=== PATIENT | female | born 1945 | race Caucasian/White ===

== ENCOUNTER 2024-02-13 13:39 | Emergency (ER) | payer MEDICARE, SELFPAY ==
[2024-02-13 13:45] VITALS: BP 128/68; PULSE 69; RESP 16; TEMP 36.7; O2SAT 95; BMI 24.9
--- NOTE | 2024-02-13 14:29 | XR_ITS ---
Examination: Ultrasound soft tissue right leg Technique multiple high-resolution grayscale sonographic images soft tissue right lower leg Exam date and time: February 13, 2024 1528 hrs. Indications: Palpable lump right leg beginning 4 hours ago Findings: Complex echogenic mass at the area concern 4.2 x 1.5 x 4.1 cm suspicious for developing abscess, hematoma not excluded Impression: Complex echogenic mass at the area concern 4.2 x 1.5 x 4.1 cm suspicious for developing abscess, hematoma Excluded, clinical correlation advised
--- NOTE | 2024-02-13 14:29 | PD.EDSKIN ---
ED Skin Abcess FB-RME/HPI General Chief complaint: Skin/Abscess/Foreign Body Stated complaint: ITCHY BUMP TO RIGHT ANKLE Time Seen by Provider: 02/13/24 13:45 Arrival date/time: 02/13/24 13:39 This is an 78-year-old female that comes in with complaints of bump to the right dorsal lower leg. Patient states it started prior to arrival. Patient denies trauma. Patient complains of mild pain. Patient has a history of high blood pressure, thyroid disease. I have greeted and performed a focused initial assessment of this patient. Initial appropriate labs ordered at this time. A comprehensive ED assessment and evaluation of the patient and analysis of all test and completion of medical decision making process will be conducted by additional ED provider. Related Data Home Medications ?Medication ?Instructions ?Recorded ?Confirmed benazepril 40 mg tablet 40 mg PO QDAY 01/24/20 03/12/20 bumetanide 1 mg tablet 1 mg PO QDAY 01/24/20 03/12/20 levothyroxine 75 mcg tablet 75 mcg PO QDAY 01/24/20 03/12/20 (Synthroid) nifedipine 60 mg tablet,extended 90 mg PO QDAY 01/24/20 03/12/20 release 24 hr amlodipine 5 mg tablet 5 mg PO QDAY 03/12/20 03/12/20 eszopiclone 3 mg tablet (Lunesta) 3 mg PO QDAY 03/12/20 03/12/20 Allergies Allergy/AdvReac Type Severity Reaction Status Date / Time Penicillins Allergy Severe HANDS Verified 05/24/21 08:51 SWELLING Review of Systems Review of Systems Systems Reviewed: All systems reviewed, normal except as documented Past Medical History Past Medical History NEUROLOGIC: Negative Neurological Disorders, Cerebrovascular Accident, Alzheimer's Disease or Seizures CARDIAC: Positive Congestive Heart Failure and Hypertension; Negative Cardiac Disorders, Myocardial Infarction or Angina RESPIRATORY: Negative Chronic Obstructive Pulmonary Disease (COPD), Emphysema or Cystic Fibrosis GASTROINTESTINAL: Negative Gastrointestinal Disorders, Liver Cancer or Pancreatic Cancer GENITOURINARY: Positive Dialysis (X3 WEEK/ MON. WED. THURSDAY); Negative Renal Disease REPRODUCTIVE: Positive Previous Pregnancies (X2) MUSCULOSKELETAL: Negative Musculoskeletal Disorders, Muscular Dystrophy or Bone Cancer ENT: Positive Cataracts; Negative Blind or Deafness ENDOCRINE: Positive Diabetes Mellitus Type 2; Negative Endocrine Disorders or Diabetes Mellitus Type 1 OTHER HISTORY: Positive Blood Transfusions; Negative Down Syndrome, Developmental Delay, Falls, Blood Transfusion Reaction or Anesthesia Reactions Family History FAMILY HISTORY: Negative Family Cardiac Disorders Surgical History SURGICAL: Positive Angiogram Social History SMOKING STATUS: Never smoker Travel History EBOLA RISK: No ED Exam General General appearance: Present alert and in no apparent distress Head Head exam: Present atraumatic Eye Eye exam: Present normal appearance, PERRL and EOMI ENT ENT exam: Present normal exam, normal oropharynx and mucous membranes moist Neck Neck exam: Present normal inspection, full ROM and trachea midline Chest Chest inspection: Present normal inspection and symmetric chest wall rise Respiratory Respiratory exam: Present normal lung sounds bilaterally Cardiovascular Cardiovascular exam: Present regular rate, normal rhythm and normal heart sounds Abdominal Exam Abdominal exam: Present soft and normal bowel sounds Extremities Exam Extremities exam: Present full ROM and other (approx 3.5cm 3.5 cm bump on right dorsal lower leg) Back Exam Back exam: Present normal inspection and full ROM Neurological Exam Neurological exam: Present alert, oriented X3 and CN II-XII intact Psychiatric Psychiatric exam: Present normal affect and normal mood Skin Skin exam: Present warm, dry, intact and normal color Course Quality Measures none Orders Category Date Time Status US soft tissue lower back abd Stat Exams 02/13/24 14:29 Completed Vital Signs Vital signs: Vital Signs Temperature 98.0 F 02/13/24 13:45 Pulse Rate 69 02/13/24 13:45 Respiratory Rate 16 02/13/24 13:45 Blood Pressure 128/68 02/13/24 13:45 Pulse Oximetry (%) 95 02/13/24 13:45 Oxygen Delivery Method Room Air 02/13/24 13:45 Skin / Abscess / Foreign Body MDM Narrative MDM Narrative:: This is an 78-year-old female that comes in with complaints of bump to the right dorsal lower leg. Patient states it started prior to arrival. Patient denies trauma. Patient complains of mild pain. Patient has a history of high blood pressure, thyroid disease. US to right lower leg Findings: Complex echogenic mass at the area concern 4.2 x 1.5 x 4.1 cm suspicious for developing abscess, hematoma not excluded Impression: Complex echogenic mass at the area concern 4.2 x 1.5 x 4.1 cm suspicious for developing abscess, hematoma Excluded, clinical correlation advised It is likely this is not an abscess, no erythema. It is possible pt hit her right lower leg. This is likely a hematoma not abscess. I told pt to elevate and ICE area. Take tylenol for pain. Pt told to fpllow up with primary provider in 1-2 days. Come back to ED if symptoms change or worsen. Patient data External records reviewed:: [facility] previous records Clinical information provided by:: patient Social determinants that could affect healthcare access:: none Patient has the following chronic illnesses:: see note How is presenting disease/condition affected by chronic disease/condition?: uneffected by Evaluation data The following diagnostics were reviewed and interpreted by me:: radiology exam(s) Lab and/or radiology exams considered but not ordered:: none Interpretation Summary: see note Medications / Prescriptions Medications or Prescriptions considered but not ordered:: none Medication administrations:: see note Consultations Consultation(s) initiated? (list below): No Diagnosis Skin/Abscess Differential Diagnosis: abscess of skin or subcutaneous tissue, viral exanthem, allergic reaction to drug, cellulitis and other (hematoma ) Most likely diagnosis given after review of the tests above:: hematoma Admission Indicated Admission indicated?: not indicated Admission Request Was there a request for admission?: No Disposition Plan Disposition Plan: Discharge Discharge Attestation Discharge Attestation: The patient and all family members were given an opportunity to ask questions and understood the discharge instructions. Discharge instructions specifically effects, indications for sooner follow up or return to the emergency department, and the expected course of current diagnosis. Patient condition: Stable Discharge Plan Plan Patient Disposition: HOME (Self Care) Patient condition on transfer: Stable Prescriptions/Referrals Prescriptions/Med Rec: No Action bumetanide 1 mg Tablet 1 mg PO QDAY levothyroxine [Synthroid] 75 mcg Tablet 75 mcg PO QDAY nifedipine 60 mg Tablet Extended Release 24hr 90 mg PO QDAY benazepril 40 mg Tablet 40 mg PO QDAY amlodipine 5 mg Tablet 5 mg PO QDAY eszopiclone [Lunesta] 3 mg Tablet 3 mg PO QDAY Referrals: Jocelynn Clark MD [Primary Care Provider] - In 1 week Problem List Clinical Impression: Hematoma of leg, Contusion Patient/Caregiver Discharge Instructions Discharge Activity: activity as tolerated Education Materials: Bone Contusion Additional Instructions: May use ice to decrease swelling. Take Tylenol and ibuprofen for pain. Come back to the emergency room symptoms change or worsen Print Language: Citizen Of [place] Stand Alone Forms: Debo Award Info., Patient Portal Info Letter PA/SOLAR SALES ESTIMATOR Supervising Physician PA/SOLAR SALES ESTIMATOR Supervising Physician: [email or web address]
[2024-02-13 15:42] VITALS: BP 139/62; PULSE 77; RESP 16; TEMP 36.8; O2SAT 95
== END 2024-02-13 17:35 | disposition home or self-care (01) ==
PROVIDERS: Emergency Provider Neurological Surgery; PCP Internal Medicine
DX: S80.11XA Contusion of right lower leg, initial encounter (principal); E07.9 Disorder of thyroid, unspecified
CPT/HCPCS: 76705; 99284

== ENCOUNTER → 2024-11-23 | Outpatient (CLI) | payer MEDICARE, SELFPAY ==
--- NOTE | 2024-11-23 09:26 | XR_ITS ---
Examination: PA lateral chest 2 views TECHNIQUE: Upright PA lateral chest 2 views Date and time: November 23, 2024 0932 hours, comparison May 24, 2021 INDICATIONS: Coughing one month. FINDINGS: Moderate hyperexpansion. Minimal prominence left ventricle. Accentuation bronchovascular markings. Prominent central pulmonary arteries. No lobar pneumonia or pulmonary edema Prominent osteopenia IMPRESSION: COPD Bronchitis pattern
== END | disposition home or self-care (01) ==
LOC: CDIM 09:09
PROVIDERS: PCP Internal Medicine; Referring Provider Internal Medicine; Visit Provider Internal Medicine
DX: J44.9 Chronic obstructive pulmonary disease, unspecified (principal)
CPT/HCPCS: 71046

== ENCOUNTER 2025-02-08 05:33 | Emergency (ER) | payer MEDICARE, SELFPAY ==
--- NOTE | 2025-02-08 | XR_ITS ---
Examination: Steroid injection right hip joint with imaging guidance Fluoroscopy AP right hip single view INDICATIONS: Severe right hip joint pain 1 week. Exam date and time: February 08, 2025, 1212 hours Informed consent provided. Technique: A timeout was completed verifying correct patient, procedure, site, positioning. The patient was placed in supine position appropriate for the steroid injection The patient's site was prepped and draped in sterile fashion 5 cc 1% lidocaine administered locally for anesthesia. Sterile drape applied, maximum barrier sterile technique. Utilizing fluoroscopic guidance, 23-gauge needle placed in the right hip joint 1 cc Depo-Medrol introduced into the right hip joint The patient was in satisfactory and stable condition on completion of the procedure Attending radiologist was present for the entire procedure Estimated blood loss 0 cc. Impression: Successful steroid injection right hip joint with imaging guidance Fluoroscopy 0.1-minute radiation dose 0.80 mGy 1 spot fluoroscopic hip film.
[2025-02-08 05:36] VITALS: BP 123/66; PULSE 82; RESP 18; TEMP 36.9; O2SAT 95; BMI 26.6
--- NOTE | 2025-02-08 05:51 | XR_ITS ---
Examination: Right hip AP, lateral, AP pelvis 3 views Technique: Hip AP lateral, AP pelvis, 3 views Exam date and time: February 08, 2025, 0557 hours INDICATION: Right hip pain beginning 6 weeks ago. FINDINGS: Significant osteopenia No acute fracture Mild to moderate narrowing hip joints bilaterally Bones of the pelvis intact IMPRESSION: No acute hip or pelvic fracture Mild to moderate narrowing hip joints bilaterally Repeat the right hip films short-term as clinically warranted.
--- NOTE | 2025-02-08 05:51 | PD.EDRME ---
Rapid Medical Screening Exam E Arrival date/time: 02/08/25 05:33 79F with history of ESRD, HTN, and hypothyroidism presents to ED with 1 month of worsening R hip pain w/o fall/trauma. Patient has not had surgery there before. Pain that does not radiate anywhere. Chief Complaint: Hip Injury/Pain Vital signs: Vital Signs Temperature 98.4 F 02/08/25 05:36 Pulse Rate 82 02/08/25 05:36 Respiratory Rate 18 02/08/25 05:36 Blood Pressure 123/66 02/08/25 05:36 Pulse Oximetry (%) 95 02/08/25 05:36 Oxygen Delivery Method Room Air 02/08/25 05:36 Exam: Walking with walker. Clinical Impression: Hip pain vs septic arthritis vs DVT vs hip fx
[2025-02-08] MEDS: HYDROcodone/APAP 7.5/325 TABLET 1 TAB PO (06:11)
--- NOTE | 2025-02-08 13:26 | EDNOTE_ITS ---
<Statement entered by Negin Daniels MD - 02/18/25 06:29> As co-signing physician, I was present and available for consult prn. I concur with the plan and care as documented by the midlevel provider. Lower Extremity Injury RME/HPI General Chief Complaint: Hip Injury/Pain Stated Complaint: R HIP PAIN Time Seen by Provider: 02/08/25 08:42 Arrival date/time: 02/08/25 05:33 79-year-old female with hypertension on dialysis presents to the emergency department today for complaints of hip pain for more than 1 month Limitations: no limitations RME / HPI RME / HPI Narrative: 02/08/25 05:33 79F with history of ESRD, HTN, and hypothyroidism presents to ED with 1 month of worsening R hip pain w/o fall/trauma. Patient has not had surgery there before. Pain that does not radiate anywhere. Exam: Walking with walker. Impression: Hip pain vs septic arthritis vs DVT vs hip fx Related Data Home Medications ?Medication ?Instructions ?Recorded ?Confirmed benazepril 40 mg tablet 40 mg PO QDAY 01/24/2003/12 bumetanide 1 mg tablet 1 mg PO QDAY 01/24/20 levothyroxine 75 mcg tablet 75 mcg PO QDAY 01/24/20 (Synthroid) nifedipine 60 mg tablet,extended 90 mg PO QDAY 0 03/12/20 release 24 hr amlodipine 5 mg tablet 5 mg PO QDAY 03/12/20 eszopiclone 3 mg tablet (Lunesta) 3 mg PO QDAY 1 03/12/20 Previous Rx's ?Medication ?Instructions ?Recorded cephalexin 500 mg capsule 500 mg PO BID 7 days #14 cap s 02/08/25 hydrocodone 5 mg-acetaminophen 325 1 tab PO BID PRN pa in #10 tabs 02/08/25 mg tablet mupirocin 2 % topical ointment 1 applic topical TID 10 days #22 02/08/25 grams Allergies Allergy/AdvReac Type Severity Reaction Status Date / Time Penicillins Allergy Severe HANDS Verified 02/08/25 05:40 SWELLING Review of Systems Review of Systems Systems Reviewed: All systems reviewed, normal except as documented Constitutional Constitutional: Reports system reviewed and no additional complaints, except as documented, Denies fever(s) and Denies headache(s) Eyes Eyes: Reports system reviewed and no additional complaints, except as documented and Denies blurry vision ENT Ears, Nose, Mouth, and Throat: Reports system reviewed and no additional complaints, except as documented, Denies headache(s), Denies nasal congestion and Denies nasal discharge Cardiovascular Cardiovascular: Reports system reviewed and no additional complaints, except as documented, Denies chest pain and Denies dyspnea Respiratory Respiratory: Reports system reviewed and no additional complaints, except as documented, Denies chest congestion, Denies cough and Denies dyspnea Gastrointestinal Gastrointestinal: Reports system reviewed and no additional complaints, except as documented and Denies abdominal pain Musculoskeletal Musculoskeletal: Reports system reviewed and no additional complaints, except as documented, Reports abnormal gait, Reports arthralgias, Denies deformity, Denies numbness, Reports stiffness, Denies tingling and Reports other (1 month history of right hip pain) Integumentary/Breasts Skin/Breast: Reports system reviewed and no additional complaints, except as documented, Denies rash and Reports other (Superficial skin sore right buttock) Neurologic Neurologic: Reports system reviewed and no additional complaints, except as documented, Reports as per HPI, Reports abnormal gait, Denies headache(s), Denies numbness and Denies tingling Past Medical History Past Medical History NEUROLOGIC: Negative Neurological Disorders, Cerebrovascular Accident, Alzheimer's Disease or Seizures CARDIAC: Positive Congestive Heart Failure and Hypertension; Negative Cardiac Disorders, Myocardial Infarction or Angina RESPIRATORY: Negative Chronic Obstructive Pulmonary Disease (COPD), Emphysema or Cystic Fibrosis GASTROINTESTINAL: Negative Gastrointestinal Disorders, Liver Cancer or Pancreatic Cancer GENITOURINARY: Positive Dialysis (X3 WEEK/ THU. THU. THURSDAY); Negative Renal Disease REPRODUCTIVE: Positive Previous Pregnancies (X2) MUSCULOSKELETAL: Negative Musculoskeletal Disorders, Muscular Dystrophy or Bone Cancer ENT: Positive Cataracts; Negative Blind or Deafness ENDOCRINE: Positive Diabetes Mellitus Type 2; Negative Endocrine Disorders or Diabetes Mellitus Type 1 OTHER HISTORY: Positive Blood Transfusions; Negative Down Syndrome, Developmental Delay, Falls, Blood Transfusion Reaction or Anesthesia Reactions Family History FAMILY HISTORY: Negative Family Cardiac Disorders Surgical History SURGICAL: Positive Angiogram Social History SMOKING STATUS: Never smoker ED Exam General Limitations: Present no limitations General appearance: Present alert and in no apparent distress Head Head exam: Present atraumatic Eye Eye exam: Present normal appearance, PERRL and EOMI ENT ENT exam: Present normal exam, normal oropharynx and mucous membranes moist Neck Neck exam: Present normal inspection, full ROM and trachea midline Chest Chest inspection: Present normal inspection and symmetric chest wall rise Respiratory Respiratory exam: Present normal lung sounds bilaterally Cardiovascular Cardiovascular exam: Present regular rate, normal rhythm and normal heart sounds Abdominal Exam Abdominal exam: Present soft and normal bowel sounds Extremities Exam Extremities exam: Present full ROM, tenderness (Right hip tenderness) and normal capillary refill; Absent pedal edema, joint swelling or calf tenderness Back Exam Back exam: Present normal inspection and full ROM Neurological Exam Neurological exam: Present alert, oriented X3 and CN II-XII intact Psychiatric Psychiatric exam: Present normal affect and normal mood Skin Skin exam: Present warm and dry Expanded Skin Exam Body image: 2 1. Superficial skin sore right buttock Course Quality Measures none Orders Category Date Time Status Diet Renal Diet 02/08/[address] hip RT wo con Stat Exams 02/08/25 13:32 Completed IR hip injection Stat Exams 02/08/25 Completed XR hip RT w pelvis 2-3V Stat Exams 02/08/25 05:51 Completed Bupivacaine Mpf 0.25% [Sensorcaine-Mpf Inj 0.25%] Med 02/08/25 12:28 Discontinued 30 ml .ROUTE .STK-MED ONE HYDROcodone*/APAP 7.5/325 [[place] 7.5/325] Med 02/08/25 05:51 Discontinued 1 tab PO X1 ONE MethylPREDNISolone ACETATE [Depo-Medrol Inj] Med 02/08/25 12:28 Discontinued 80 mg .ROUTE .STK-MED ONE MethylPREDNISolone ACETATE [Depo-Medrol Inj] Med 02/08/25 12:35 Discontinued 80 mg IM X1 ONE Vital Signs Vital signs: Vital Signs Temperature 98.4 F 02/08/25 05:36 Pulse Rate 82 02/08/25 05:36 Respiratory Rate 18 02/08/25 05:36 Blood Pressure 123/66 02/08/25 05:36 Pulse Oximetry (%) 95 02/08/25 05:36 Oxygen Delivery Method Room Air 02/08/25 05:36 O2 saturation 95% room air within normal limits Extremity Injury, Lower MDM Narrative MDM Narrative:: 79-year-old female with medical history significant hypertension on dialysis presents to the emergency department today for complaints of hip pain for more than 1 month On exam patient has tenderness of the right hip patient report pain worse with movement X-ray of the right hip obtained no acute fracture dislocation noted Patient reports he is awaiting a appointment to have a hip injection Consultation: I spoke with Dr. Jones interventional radiologist he states he can do a hip injection here at the ER Hip injection placed Consultation: I spoke with patient's primary care doctor/director phone requested a CT scan to rule out avascular necrosis Hip CT obtained which shows femoral neck fracture I spoke with the patient about the injury patient reports approximately 6 weeks ago she was knocked down by her dog and believes it was the cause. I explained to the patient at this time she has a fracture of her right hip and explained that she needs to have surgery and transfer to a hospital has orthopedics on-call. Patient reports that she absolutely will not be transferred and will go home at this time patient is ambulatory Patient reports she cannot stay needs to take care of her animals and states she will not stay. Patient is GCS of 15 states understanding and states that if she leaves she understands that the fracture can get worse nonetheless patient reports she is still leaving. Consultation: I spoke with patient's primary care doctor states she will reach out to her Patient data External records reviewed:: [facility] previous records Clinical information provided by:: patient Social determinants that could affect healthcare access:: none Patient has the following chronic illnesses:: See history How is presenting disease/condition affected by chronic disease/condition?: u neffected by Evaluation data The following diagnostics were reviewed and interpreted by me:: radiology exam(s) Lab and/or radiology exams considered but not ordered:: Radiology obtained Interpretation Summary: Reviewed by me Medications / Prescriptions Medications or Prescriptions considered but not ordered:: Given Medication administrations:: Medication Administration History Discontinued Medications Hydrocodone Bitart/Acetaminophen (Hydrocodone/Apap 7.5/325 Tablet) 1 tab PO X1 ONE Stop: 02/08/25 05:52 Last Admin: 02/08/25 06:11 Dose: 1 tab Documented By: CVL Bupivacaine HCl (Bupivacaine Mpf 0.25% 30 Ml Vial) Confirm Administered Dose 30 ml .ROUTE .STK-MED ONE Stop: 02/08/25 12:29 Methylprednisolone Acetate (Methylprednisolone Acet Im 80 Mg/Ml Vial) Confirm Administered Dose 80 mg .ROUTE .STK-MED ONE Stop: 02/08/25 12:29 Methylprednisolone Acetate (Methylprednisolone Acet Im 80 Mg/Ml Vial) 80 mg IM X1 ONE Stop: 02/08/25 12:36 Given Consultations Consultation(s) initiated? (list below): No Diagnosis Most likely diagnosis given after review of the tests above:: Hip fracture, right buttock skin sore Admission Indicated Admission indicated?: not indicated Admission Request Was there a request for admission?: No Disposition Plan Disposition Plan: other (specify) (Left AGAINST MEDICAL ADVICE) Discharge Plan Plan Patient Disposition: Left Against Medical Advice Discharge Disposition comment: Stable Prescriptions/Referrals Prescriptions/Med Rec: New hydrocodone-acetaminophen 5-325 mg tablet 1 tab PO BID MDD 10 PRN (Reason: pain) Qty: 10 0RF cephalexin 500 mg capsule 500 mg PO BID 7 Days Qty: 14 0RF mupirocin 2 % ointment 1 applic topical TID 10 Days Qty: 22 0RF No Action bumetanide 1 mg Tablet 1 mg PO QDAY levothyroxine [Synthroid] 75 mcg Tablet 75 mcg PO QDAY nifedipine 60 mg Tablet Extended Release 24hr 90 mg PO QDAY benazepril 40 mg Tablet 40 mg PO QDAY amlodipine 5 mg Tablet 5 mg PO QDAY eszopiclone [Lunesta] 3 mg Tablet 3 mg PO QDAY Referrals: Jocelynn Clark MD [Primary Care Provider, Nephrology] - 02/09/25 Problem List Clinical Impression: Closed fracture of right hip Patient/Caregiver Discharge Instructions Education Materials: How [employer] Print Language: Slovenian PA/ANOOP Supervising Physician OG/ANOOP Supervising Physician: DR daniels
--- NOTE | 2025-02-08 13:32 | XR_ITS ---
Examination: CT right hip, without contrast. CT pelvis without intravenous contrast 2-D sagittal reconstructions. 2-D coronal reconstructions. 3-D reconstructions. Date and time of exam: February 08, 2025, 1520 hours INDICATION: Right hip pain 6 months worse today CTDI: vol (mGy): 6.90 DLP: (mGycm): 216 Technique: Multiple 1.25 mm axial sections of the pelvis right hip have been obtained. 2-D sagittal and coronal reconstructions have been obtained. 3-D reconstructions have been obtained. Low dose protocols were performed. One or more of the following dose reduction techniques were used; automated exposure control, adjustment of the mA and/or KV according to patient size, use of iterative reconstruction technique. Findings: Nonobstructive bowel gas pattern Atrophic uterus No pelvic mass Contracted urinary bladder Severe osteopenia Moderate narrowing hip joints Acute appearing right femoral neck fracture, axial image 111, coronal image 99 No avascular necrosis No hip dislocation Bones of the pelvis intact as well as left hip IMPRESSION: Acute nondisplaced right femoral neck fracture
[2025-02-08 16:16] VITALS: BP 128/82; PULSE 78; RESP 16; TEMP 36.6; O2SAT 99
== END 2025-02-08 16:18 | disposition left against medical advice (07) ==
PROVIDERS: Emergency Provider Emergency Medicine; PCP Internal Medicine
DX: S72.001A Fracture of unspecified part of neck of right femur, initial encounter for closed fracture (principal); X58.XXXA Exposure to other specified factors, initial encounter; Z53.29 Procedure and treatment not carried out because of patient's decision for other reasons
CPT/HCPCS: 20610; 73502; 73700; 77002; 99283; A9270

== ENCOUNTER 2025-02-22 09:28 | Emergency (ER) | payer MEDICARE, SELFPAY ==
--- NOTE | 2025-02-22 09:38 | EKG_ITS ---
[facility] Test Date: 2025-02-22 Pat Name: RYAN PUENTE Department: Room: - Gender: Female Raspberry Checker: : 1945 Requested By: Mino Contreras (EFE) Order Number: [id number] Reading MD: Mino Contreras ([employer]ARD WORKER) Measurements Intervals [place] Rate: 114 P: IN: QRS: -48 QRSD: 104 T: 67 QT: 333 QTc: 459 Interpretive Statements ATRIAL FIBRILLATION WITH RAPID VENTRICULAR RESPONSE LEFT AXIS DEVIATION [QRS AXIS < -30] ANTEROSEPTAL MYOCARDIAL INFARCTION , OF INDETERMINATE AGE [40+ ms Q WAVE IN V1-V4] Compared to ECG 05/24/2021 09:38:30 Left-axis deviation now present Sinus rhythm no longer present First degree AV block no longer present Myocardial infarct finding still present /store/S0/[id number].pdf
[2025-02-22 09:49] VITALS: BP 92/55; PULSE 117; RESP 18; TEMP 36.9; O2SAT 96; BMI 25.8
--- NOTE | 2025-02-22 09:59 | XR_ITS ---
EXAMINATION: AP chest single view TECHNIQUE: AP portable semiupright chest single view Date and time: February 22, 2025, 1123 hours, comparison 11/23/2024 INDICATIONS: Chest pain difficulty breathing today. FINDINGS: Normal heart size Accentuation of bronchovascular markings. Left axillary surgical clips. No lobar pneumonia. Severe osteopenia IMPRESSION: Bronchitis pattern
[2025-02-22 10:14] VITALS: BP 108/60; PULSE 89; PULSE 92; RESP 29; O2SAT 100
[2025-02-22 10:18] LABS: Basophils # (Auto) 0.1 Thou/mm3 (0.0-0.2); Basophils % (Auto) 0 % (0-2.5); Eosinophils # (Auto) 0.2 Thou/mm3 (0.0-0.5); Eosinophils % (Auto) 2 % (0-10); Hematocrit 30.5 % (36.0-46.0); Hemoglobin 9.6 g/dL (12.0-16.0); Immature Granulocytes Auto 0.08 Thou/mm3 (0.00-0.00); Lymphocytes # (Auto) 1.4 Thou/mm3 (1.0-4.8); Lymphocytes % (Auto) 9 % (10-50); Mean Corpuscular HGB Conc 31.5 g/dl (31.0-37.0); Mean Corpuscular Hemoglobin 34.3 pg (25.0-35.0); Mean Corpuscular Volume 109 fL (80-100); Monocytes # (Auto) 1.5 Thou/mm3 (0.0-0.8); Monocytes % (Auto) 10 % (0-12); Neutrophils # (Auto) 12.1 Thou/mm3 (1.8-7.7); Neutrophils % (Auto) 79 % (37-80); Nucleated Red Blood Cell # 0.00 Thou/mm3 (0.00-0.00); Nucleated Red Blood Cell % 0 /100 WBC (0); Platelet Count 268 Thou/mm3 (140-440); RDW Standard Deviation 58.2 fL (36.4-46.3); Red Blood Count 2.80 Miln/mm3 (4.00-5.20); White Blood Count 15.4 Thou/mm3 (3.6-11.0)
[2025-02-22 10:32] LABS: INR 1.0 (0.9-1.3); Partial Thromboplastin Time 23.2 Seconds (22.0-36.0); Prothrombin Time 10.9 Seconds (9.0-12.2)
[2025-02-22 10:36] LABS: Alanine Aminotransferase 13 U/L (10-49); Albumin, Serum 4.8 gm/dL (3.4-4.8); Albumin/Globulin Ratio 1.5 (1.2-2.2); Alkaline Phosphatase 112 U/L (46-116); Anion Gap 11 (7-16); Aspartate Amino Transferase 34 U/L (0-34); BUN/Creatinine Ratio 8 Ratio (12-20); Bilirubin,Total 0.5 mg/dL (0.3-1.2); Blood Urea Nitrogen 25 mg/dL (9-23); Calcium 9.9 mg/dL (8.3-10.6); Calcium (Corrected) 9.9 mg/dL (8.5-10.1); Carbon Dioxide 34.6 mMol/L (20.0-31.0); Chloride 96 mMol/L (98-107); Creatinine (Component) 3.0 mg/dL (0.6-1.3); Estimated Creatinine Clearance 15.5 mL/min (>60); Globulin 3.2 gm/dL (2.3-3.5); Glucose 168 mg/dL (74-106); Lipase 100 U/L (12-53); Magnesium 2.3 mg/dL (1.6-2.6); Osmolality,Calculated 291 (275-295); Potassium 3.2 mMol/L (3.4-5.1); Sodium 142 mMol/L (136-145); Total Protein 8.0 gm/dL (5.7-8.2); Troponin I 0.033 ng/mL (0.0-0.045); eGFR 15 See Note
[2025-02-22 10:57] LABS: B-Type Natriuretic Peptide 654 pg/mL (0-100)
--- NOTE | 2025-02-22 11:49 | PD.EDSOB ---
ED SOB =RME/HPI General Chief Complaint: Shortness of Breath/Dyspnea Stated Complaint: DIFFICULTY BREATHING Time Seen by Provider: 02/22/25 09:58 Arrival date/time: 02/22/25 09:28 RME / HPI RME / HPI Narrative: 79 year old female with history of ESRD on HD, CHF, anemia presents to the ED for evaluation of shortness of breath today. States the shortness of breath is different than previous episodes of shortness of breath. Reports she was recently diagnosed with bronchitis and started on treatment which she has taken with no improvement. Patient mentioned she had just completed her dialysis today and had 2.5 L of fluids removed. Patient states she does not make urine. [employer]: Dr. Clark. Related Data Home Medications ?Medication ?Instructions ?Recorded ?Confirmed benazepril 40 mg tablet 40 mg PO QDAY 01/24/20 03/12/20 bumetanide 1 mg tablet 1 mg PO QDAY 01/24/20 03/12/20 levothyroxine 75 mcg tablet 75 mcg PO QDAY 01/24/20 03/12/20 (Synthroid) nifedipine 60 mg tablet,extended 90 mg PO QDAY 01/24/20 03/12/20 release 24 hr amlodipine 5 mg tablet 5 mg PO QDAY 03/12/20 03/12/20 eszopiclone 3 mg tablet (Lunesta) 3 mg PO QDAY 03/12/20 03/12/20 Previous Rx's ?Medication ?Instructions ?Recorded hydrocodone 5 mg-acetaminophen 325 1 tab PO BID PRN pain #10 tabs 02/08/25 mg tablet azithromycin 250 mg tablet 250 mg PO QDAY 4 days #4 tabs 02/22/25 Allergies Allergy/AdvReac Type Severity Reaction Status Date / Time Penicillins Allergy Severe HANDS Verified 02/22/25 09:30 SWELLING Review of Systems Review of Systems Systems Reviewed: All systems reviewed, normal except as documented Past Medical History Past Medical History CARDIAC: Positive Cardiac Disorders (chf), Congestive Heart Failure and Hypertension RESPIRATORY: Positive Asthma GENITOURINARY: Positive Renal Disease (on dialysis) and Dialysis (M, W, F) REPRODUCTIVE: Positive Previous Pregnancies ENT: Positive Cataracts OTHER HISTORY: Positive Blood Transfusions Surgical History SURGICAL: Positive Angiogram Social History SMOKING STATUS: Never smoker ED Exam Narrative Physical exam: GENERAL APPEARANCE: alert and oriented x 4, well-developed, well-nourished, no acute distress HEENT: Normocephalic, atraumatic; pupils equal, round, reactive to light; EOMI; mucous membranes pink, moist; oropharynx clear NECK: Supple LUNGS: Crackles bilaterally; no wheezes, no rales, no rhonchi HEART: Regular rate, regular rhythm; normal S1, S2; no murmurs ABDOMEN: non distended; normal BS; soft, no tenderness, no guarding, no rebound; no masses, no organomegaly, no hernia BACK: no CVA tenderness EXTREMITIES: atraumatic; no edema NEUROLOGIC: awake; alert and oriented x4; cranial nerves II-XII grossly intact; no focal sensory or motor deficits PSYCHIATRIC: appropriate mood and affect SKIN: warm, dry, normal color; no rashes Course Quality Measures none Orders Category Date Time Status CT Screening NOW Care 02/22/25 12:27 Completed Support Specialist NOW Care 02/22/25 09:59 Completed EKG (ED ONLY) *Do not use* NOW Care 02/22/25 09:38 Completed EKG (ED Only) Stat Exams 02/22/25 09:38 Draft XR chest 1V portable Stat Exams 02/22/25 09:59 Completed B-Type Natriuretic Peptide Stat Lab 02/22/25 10:11 Completed CBC Stat Lab 02/22/25 10:11 Completed Comprehensive Metabolic Panel Stat Lab 02/22/25 10:11 Completed Lipase Stat Lab 02/22/25 10:11 Completed Magnesium Stat Lab 02/22/25 10:11 Completed Partial Thromboplastin Time Stat Lab 02/22/25 10:11 Completed Prothrombin Time with INR Stat Lab 02/22/25 10:11 Completed Troponin I Stat Lab 02/22/25 10:11 Completed Azithromycin Po [Zithromax PO] Med 02/22/25 11:45 Discontinued 500 mg PO X1 ONE MethylPREDNISolone.* [SoluMEDROL Inj] Med 02/22/25 12:50 Discontinued 125 mg IVP X1 ONE POTASSIUM CHL 10% Liq 15 ML Med 02/22/25 11:45 Discontinued 40 meq PO X1 ONE O2 [Oxygen Delivery] NOW RT 02/22/25 10:24 Completed Vital Signs Vital signs: Vital Signs Temperature 98.5 F 02/22/25 09:49 Pulse Rate 117 H 02/22/25 09:49 Respiratory Rate 18 02/22/25 09:49 Blood Pressure 92/55 L 02/22/25 09:49 Pulse Oximetry (%) 96 02/22/25 09:49 Oxygen Delivery Method Room Air 02/22/25 09:49 Pulse ox is 96% on room air which is adequate. Shortness of Breath / Dyspnea MDM Narrative MDM Narrative:: Daxa Marks am scribing for and in the presence of Dr. Daniels. Patient data External records reviewed:: [facility] previous records Clinical information provided by:: patient Social determinants that could affect healthcare access:: none Patient has the following chronic illnesses:: ESRD on HD, CHF, anemia How is presenting disease/condition affected by chronic disease/condition?: exacerbated by Evaluation data The following diagnostics were reviewed and interpreted by me:: EKG tracing(s) (EKG @ 09:54 am, sinus tachycardia, rate 114, left axis deviation, no STEMI ) Lab and/or radiology exams considered but not ordered:: None Interpretation Summary: Ordering Physician: Negin Daniels MD Date of Service: 02/22/25 Procedure(s): XR chest 1V portable Accession Number(s): [id number] cc: Rupert Vergara MD; Negin Daniels MD~ EXAMINATION: AP chest single view TECHNIQUE: AP portable semiupright chest single view Date and time: February 22, 2025, 1123 hours, comparison 11/23/2024 INDICATIONS: Chest pain difficulty breathing today. FINDINGS: Normal heart size Accentuation of bronchovascular markings. Left axillary surgical clips. No lobar pneumonia. Severe osteopenia IMPRESSION: Bronchitis pattern Dictated By: Rupert Vergara MD Signed By: <Electronically signed by Rupert Vergara MD in [place]> 02/22/25 1148 Medications / Prescriptions Medications or Prescriptions considered but not ordered:: None Medication administrations:: Medication Administration History Discontinued Medications Azithromycin (Azithromycin 250 Mg Tablet) 500 mg PO X1 ONE Stop: 02/22/25 11:46 Last Admin: 02/22/25 11:55 Dose: 500 mg Documented By: VL Methylprednisolone Sodium Succinate (Methylprednisolone Sod Succ 62.5 Mg/Ml 2ml Vial) 125 mg IVP X1 ONE Stop: 02/22/25 12:51 Last Admin: 02/22/25 13:14 Dose: 125 mg Documented By: VL Potassium Chloride (Potassium Chloride 10% 20 Meq/15 Ml Udc) 40 meq PO X1 ONE Stop: 02/22/25 11:46 Last Admin: 02/22/25 11:55 Dose: 40 meq Documented By: VL See above Consultations Consultation(s) initiated? (list below): No Diagnosis Shortness of Breath Differential Diagnosis: acute exacerbation of chronic obstructive airways disease, congestive heart failure and community acquired pneumonia Most likely diagnosis given after review of the tests above:: Bronchitis Admission Indicated Admission indicated?: not indicated Admission Request Was there a request for admission?: No Disposition Plan Disposition Plan: Discharge Discharge Attestation Discharge Attestation: The patient and all family members were given an opportunity to ask questions and understood the discharge instructions. Discharge instructions specifically effects, indications for sooner follow up or return to the emergency department, and the expected course of current diagnosis. Patient condition: Stable Discharge Plan Plan Patient Disposition: HOME (Self Care) Prescriptions/Referrals Prescriptions/Med Rec: New azithromycin 250 mg tablet 250 mg PO QDAY 4 Days Qty: 4 0RF Rx Instructions: start on day 2 of therapy No Action bumetanide 1 mg Tablet 1 mg PO QDAY levothyroxine [Synthroid] 75 mcg Tablet 75 mcg PO QDAY nifedipine 60 mg Tablet Extended Release 24hr 90 mg PO QDAY benazepril 40 mg Tablet 40 mg PO QDAY amlodipine 5 mg Tablet 5 mg PO QDAY eszopiclone [Lunesta] 3 mg Tablet 3 mg PO QDAY hydrocodone-acetaminophen 5-325 mg tablet 1 tab PO BID MDD 10 PRN (Reason: pain) Qty: 10 0RF Referrals: Jocelynn Clark MD [Primary Care Provider, Nephrology] - In 1 week Problem List Clinical Impression: Bronchitis Patient/Caregiver Discharge Instructions Education Materials: ED Upper Resp Infec Abx Tx Print Language: Kyrgyz Stand Alone Forms: [employer] Award Info., Patient Portal Info Letter
[2025-02-22] MEDS: AZITHROMYCIN 250 MG TABLET 500 MG PO (11:55)
[2025-02-22] MEDS: POTASSIUM CHLORIDE 10% 20 MEQ/15 ML UDC 40 MEQ PO (11:55)
[2025-02-22 12:00] VITALS: BP 124/56; PULSE 87; RESP 20; TEMP 36.6; O2SAT 100
--- NOTE | 2025-02-22 12:46 | PC.NURSE ---
DR. BARTLETT NOTIFIED PATIENT STILL HAS SHORTNESS OF BREATH PATIENT RESPIRATIONS IN 30S-40S. PATIENT SATURATING 96% ON ROOM AIR. PER MD PATIENT NEEDS CTA FOR PE RULE OUT. PATIENT STATES SHE HAS PREVIOUS REACTION TO CONTRAST YEARS AGO AND COULD NOT BREATH GOOD AFTER SHE RECEIVED CONTRAST. DR. BARTLETT NOTIFIED.
[2025-02-22] MEDS: MethylPREDNISolone SOD SUCC 62.5 MG/ML 2ML VIAL 125 MG IVP (13:14)
[2025-02-22 13:53] VITALS: BP 134/60; PULSE 90; RESP 24; TEMP 36.9; O2SAT 96
== END 2025-02-22 13:57 | disposition home or self-care (01) ==
PROVIDERS: Emergency Provider Emergency Medicine; PCP Internal Medicine
DX: J40 Bronchitis, not specified as acute or chronic (principal); I48.91 Unspecified atrial fibrillation; I13.2 Hypertensive heart and chronic kidney disease with heart failure and with stage 5 chronic kidney disease, or end stage renal disease; N18.6 End stage renal disease; Z99.2 Dependence on renal dialysis; I50.9 Heart failure, unspecified
CPT/HCPCS: 36415; 71045; 80053; 83690; 83735; 83880; 84484; 85025; 85610; 85730; 93005; 96374; 99284; J2919; A9270